=== PATIENT | male | born 1940 | race Hispanic/Latino ===

== ENCOUNTER 2021-09-10 07:26 | Observation (INO) | payer OTHER, MEDICARE ==
[2021-09-03 14:34] LABS: BASOPHILS % (AUTO) 0.8 % (0.0-5.0); EOSINOPHILS % (AUTO) 3.1 % (0.0-8.0); HEMATOCRIT 44.3 % (42-54); LYMPHOCYTES % (AUTO) 28.1 % (21.0-51.0); MEAN CORPUSCULAR HEMOGLOBIN 29.7 pg (27.0-33.0); MEAN CORPUSCULAR HGB CONC 31.8 g/dL (32.0-36.0); MEAN CORPUSCULAR VOLUME 93.5 fL (79-99); MONOCYTES % (AUTO) 12.8 % (3.0-13.0); PLATELET COUNT (AUTO) 163 K/uL (130-400); RED BLOOD CELL COUNT(AUTO) 4.74 MIL/uL (4.50-6.20); RED CELL DISTRIBUTION WIDTH 14.3 % (11.0-15.5); WHITE BLOOD COUNT (AUTO) 5.2 K/uL (4.8-10.8)
[2021-09-03 14:48] LABS: CREATININE 1.2 mg/dL (0.5-1.5); POTASSIUM 4.7 mmol/L (3.5-5.1)
[2021-09-03 14:52] LABS: PARTIAL THROMBOPLASTIN TIME 59.1 SEC (26.3-35.5)
[2021-09-03 15:03] LABS: INR > 7.00 (0.85-1.15); PROTHROMBIN TIME 108.6 SEC (9.6-11.6)
[2021-09-07 12:10] LABS: INR 3.25 (0.85-1.15); PROTHROMBIN TIME 31.8 SEC (9.6-11.6)
[~2021-09-10] VITALS: Ht 165.1 cm; Wt 80.7 kg
[2021-09-10] VITALS (9 sets, daily range): BP systolic 132–173; BP diastolic 72–89
[~2021-09-10 07:26] MED LIST: ATOR-2 PO; EZET10TA48 PO; FAMO20TA8 PO; FURO20TA4 PO; HYDR-4153 PO; WARF5TAB8 PO
[2021-09-10] MEDS ORDERED: 0.9%NACL 1000ML 1,000 ML IV ONE (07:35)
[2021-09-10 08:02] LABS: INR 2.82 (0.85-1.15)
[2021-09-10] MEDS ORDERED: BUPIVACAINE/PF 0.25% 30ML VIAL IJ ONE (09:33)
[2021-09-10] MEDS ORDERED: CEFAZOLIN SODIUM 1 GM VIAL ONE (09:33)
[2021-09-10] MEDS ORDERED: LIDOCAINE HCL 1% MDV 50ML VIAL ONE (09:34)
[2021-09-10] MEDS ORDERED: MIDAZOLAM HCL 1 MG/ML 2ML VIAL ONE ×2 (09:34→10:09)
[2021-09-10] MEDS ORDERED: MEPERIDINE-PF 25 MG/ML SYG ONE ×2 (09:34→10:09)
[2021-09-10] MEDS ORDERED: VANCOMYCIN 1G/250ML KIT 500 ML IV ONE (09:45)
[2021-09-10] MEDS ORDERED: IODIXANOL 320 MG/ML 100 ML VIAL ONE (09:56)
[2021-09-10] MEDS: HYDRALAZINE 25MG TABLET PO SCH ×2 (14:00→20:53)
[2021-09-10] MEDS ORDERED: WARFARIN SODIUM 2 MG TAB PO SCH (17:00)
[2021-09-10] MEDS ORDERED: ONDANSETRON 4MG INJ IVP PRN (17:30)
[2021-09-10] MEDS ORDERED: MORPHINE 2 MG SYG IVP PRN (17:30)
[2021-09-10] MEDS ORDERED: ACETAMINOPHEN 325 MG TAB PO PRN (17:30)
[2021-09-10] MEDS: DOXYCYCLINE HYCLATE 100 MG TABLET PO SCH (20:53)
[2021-09-11] VITALS (7 sets, daily range): BP systolic 122–151; BP diastolic 76–95
[2021-09-11 04:09] LABS: INR 2.83 (0.85-1.15); PROTHROMBIN TIME 28.1 SEC (9.6-11.6)
[2021-09-11 04:10] LABS: POTASSIUM 4.5 mmol/L (3.5-5.1)
[2021-09-11] MEDS: EZETIMIBE 10 MG TAB PO SCH (08:03)
[2021-09-11] MEDS: HYDRALAZINE 25MG TABLET PO SCH ×3 (08:03→20:19)
[2021-09-11] MEDS: DOXYCYCLINE HYCLATE 100 MG TABLET PO SCH ×2 (08:03→20:18)
[2021-09-11] MEDS: FAMOTIDINE 20MG TAB PO SCH (08:03)
[2021-09-11] MEDS: FUROSEMIDE 20 MG TABLET PO SCH (08:04)
[2021-09-11] MEDS ORDERED: DOXY100T2 PO (08:37)
[2021-09-11 14:25] LABS: HEMATOCRIT 46.8 % (42-54); MEAN CORPUSCULAR HEMOGLOBIN 29.7 pg (27.0-33.0); MEAN CORPUSCULAR HGB CONC 31.4 g/dL (32.0-36.0); MEAN CORPUSCULAR VOLUME 94.5 fL (79-99); RED BLOOD CELL COUNT(AUTO) 4.95 MIL/uL (4.50-6.20); RED CELL DISTRIBUTION WIDTH 14.6 % (11.0-15.5); WHITE BLOOD COUNT (AUTO) 6.7 K/uL (4.8-10.8)
[2021-09-12 04:30] VITALS: BP 151/80
[2021-09-12 04:37] LABS: BASOPHILS % (AUTO) 0.4 % (0.0-5.0); EOSINOPHILS % (AUTO) 4.4 % (0.0-8.0); HEMATOCRIT 48.4 % (42-54); INR 2.62 (0.85-1.15); LYMPHOCYTES % (AUTO) 21.8 % (21.0-51.0); MEAN CORPUSCULAR HEMOGLOBIN 29.7 pg (27.0-33.0); MEAN CORPUSCULAR HGB CONC 31.6 g/dL (32.0-36.0); MEAN CORPUSCULAR VOLUME 93.8 fL (79-99); MONOCYTES % (AUTO) 9.8 % (3.0-13.0); NEUTROPHILS % (AUTO) 63.2 % (40.0-77.0); PLATELET COUNT (AUTO) 188 K/uL (130-400); PROTHROMBIN TIME 26.2 SEC (9.6-11.6); RED BLOOD CELL COUNT(AUTO) 5.16 MIL/uL (4.50-6.20); RED CELL DISTRIBUTION WIDTH 14.4 % (11.0-15.5); WHITE BLOOD COUNT (AUTO) 6.9 K/uL (4.8-10.8)
[2021-09-12 04:41] LABS: POTASSIUM 4.2 mmol/L (3.5-5.1)
[2021-09-12 08:18] VITALS: BP 140/82
[2021-09-12] MEDS ORDERED: WARF2.5T85 PO (09:13)
[2021-09-12] MEDS: FAMOTIDINE 20MG TAB PO SCH (09:18)
[2021-09-12] MEDS: FUROSEMIDE 20 MG TABLET PO SCH (09:18)
[2021-09-12] MEDS: EZETIMIBE 10 MG TAB PO SCH (09:18)
[2021-09-12] MEDS: HYDRALAZINE 25MG TABLET PO SCH (09:18)
[2021-09-12] MEDS: DOXYCYCLINE HYCLATE 100 MG TABLET PO SCH (09:19)
[2021-09-12] MEDS ORDERED: WARFARIN SODIUM 2.5 MG TAB PO SCH (09:30)
[2021-09-12 11:55] VITALS: BP 116/72
[2021-09-12 16:52] VITALS: BP 139/83
== END 2021-09-12 17:17 | disposition home or self-care (01) ==
LOC: DAH 07:26 → DAHIP 07:27 → DAH 07:27 → EDSTATUS 12:00 → 4CH 18:08
PROVIDERS: ADMIT Internal Medicine Cardiovascular Disease; ATTEND Internal Medicine Cardiovascular Disease
DX: T82.119A Breakdown (mechanical) of unspecified cardiac electronic device, initial encounter (principal); I44.2 Atrioventricular block, complete; I25.10 Atherosclerotic heart disease of native coronary artery without angina pectoris; I48.21 Permanent atrial fibrillation; I11.0 Hypertensive heart disease with heart failure; I50.22 Chronic systolic (congestive) heart failure; Y71.2 Prosthetic and other implants, materials and accessory cardiovascular devices associated with adverse incidents; Z88.0 Allergy status to penicillin; Z79.899 Other long term (current) drug therapy; Z95.2 Presence of prosthetic heart valve; Z95.0 Presence of cardiac pacemaker; Z95.1 Presence of aortocoronary bypass graft; Z96.659 Presence of unspecified artificial knee joint
CPT/HCPCS: 33207; 33225; 36415 ×5; 71045 ×2; 80048 ×3; 85025 ×2; 85027; 85610 ×5; 85730; 93005; A4215; A4216; A4221; A4222; A4223 ×3; A4606; A4663; C1769; C1898; C1900; C2621; G0378 ×52; J2175 ×2; J2250 ×2; J3370; J3490 ×2; J7030; Q9967; 99156; 99157; J0690